=== PATIENT | female | born 1970 | race Caucasian/White ===

== ENCOUNTER 2017-02-12 09:06 | Emergency (ER) | payer OTHER ==
[~2017-02-12] VITALS: Ht 152.4 cm; Wt 70.4 kg
[2017-02-12 10:26] LABS: HEMATOCRIT 43.5 % (36.0-46.0); MCH 31.8 PG (29.0-34.0); MCHC 36.8 G/DL (30.0-36.0); MCV 86.5 FL (83-99); MEAN PLAT.VOLUME 8.9 uM^3 (9.5-12.4); PLATELET COUNT 335 K/uL (156-360); RBC DIS.WIDTH-CV 11.9 % (11.8-14.6); RBC DIS.WIDTH-SD 37.4 % (39-53); RED BLOOD COUNT 5.03 M/uL (3.80-5.20); WHITE BLOOD COUNT 8.6 K/uL (4.1-10.2)
[2017-02-12 10:33] LABS: CHLORIDE 107 mEq/L (99-109); POTASSIUM 4.3 mEq/L (3.7-5.4)
[2017-02-12 10:34] LABS: SODIUM 139 mEq/L (136-147)
[2017-02-12 10:35] LABS: GLUCOSE 128 mg/dL (70-99)
[2017-02-12 10:37] LABS: ANION GAP 14 MEQ/L (2-14)
[2017-02-12 10:39] LABS: GFR ESTIMATE (CALCULATED) > 59 mL/min/
[2017-02-12 10:40] LABS: TROP-I INTERPRETATION NEGATIVE; TROPONIN-I < 0.01 ng/mL (0.0-0.30); UREA NITROGEN (BUN) 5 mg/dL (9-23)
[2017-02-12] MEDS ORDERED: FLEXERIL10 MG PO (11:53)
[2017-02-12] MEDS ORDERED: NAPROSYN500 MG PO (11:53)
[2017-02-12 12:12] VITALS: BP 170/110
== END 2017-02-12 12:13 | disposition home or self-care (01) ==
LOC: EME 09:06
PROVIDERS: Emergency Medicine
DX: S46.919A Strain of unspecified muscle, fascia and tendon at shoulder and upper arm level, unspecified arm, initial encounter (principal); I10 Essential (primary) hypertension; X50.9XXA Other and unspecified overexertion or strenuous movements or postures, initial encounter
CPT/HCPCS: 71020; 80048; 83880; 84484; 85027; 93005; 99281; 99285; J0780; J1100